=== PATIENT | male | born 2000 | race Caucasian/White ===

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

== ENCOUNTER 2023-05-04 17:51 | Emergency (ER) | payer BC, SELFPAY ==
--- OUTSIDE RECORDS SUMMARY | 2023-05-04 18:03 | XMS_ITS | Continuity of Care Document ---
Author Name Unknown Organization [facility] Address [address] [place] [address] Phone Care Team Providers Care Equipment Hire Manager Name Role Phone Froy ROMERO Karly Unavailable Unavailable Allergies, Adverse Reactions, Alerts Substance Reaction Status Criticality No Known Allergies Active No Inform ation Medications Medication Instructions Dosage Effective Dates (start - stop) Status Comments Vitamin B-12 ER 1,000 mcg tablet,extended release Take 1 tablet by mouth once daily - Active Vitamin D2 1,250 mcg (50,000 unit) capsule take 1 capsule by oral route every week with a meal - Active Synthroid 150 mcg tablet take 1 tablet by oral route 2 times every day 150 MCG - Active Celexa 10 mg tablet take 1 tablet by ora l route every day 10 MG - Active buspirone 5 mg tablet take 1 tablet by oral route 3 times every day 5 MG - Active Maxalt 10 mg tablet take 1 tablet by ora l route once, may repeat at 2 hour intervals; do not exceed 30 mg in 24 hours 10 MG - Active Procedures Procedure Date Expanded p
[2023-05-04 18:40] VITALS: BP 118/70; PULSE 107; RESP 22; TEMP 37.1; O2SAT 97; BMI 31.4
[2023-05-04 18:54] LABS: UTC Strep Screen (Rapid) Negative (Negative)
--- NOTE | 2023-05-04 19:05 | EXP.UTC ---
Discharge Plan Disposition Patient Disposition: Home, Self-Care Condition: Good Prescriptions Prescriptions: New methylprednisolone [Medrol (Emil)] 4 mg tablets,dose pack See Rx Instructions .Route .COMPLEX 6 Days Qty: 21 0RF Rx Instructions: taper pack; cefdinir 300 mg capsule 300 mg PO BID Qty: 20 0RF guaifenesin [Mucinex] 600 mg tablet extended release 12hr 1,200 mg PO BID PRN (Reason: cough) Qty: 20 0RF Referrals Follow up/Referrals: Meghan Mcgraw APRN [Primary Care Provider] - See instructions Activity Restrictions/Add. Instructions Additional Instructions/Restrictions: *Monitor Temp, Over the counter Motrin or Tylenol as directed/as needed Tylenol every 4 hours and Motrin every 6 hours (as long as your family doctor has told you that you can take it) for fever or pain. and straight to ER if unable to lower temp less than 101.0 after medication given *Warm salt water gargles may help to soothe the throat *Throat Lozenges? *Warm fluids like tea with honey may help to soothe the throat? *Sleep elevated *Humidifier/Vaporizer *Your throat swab was sent for culture. Those results are typically sent to your primary care. Be sure to follow up in 2-3 days with your family doctor/primary care physician if no improvement so they can review those result and treat if necessary. If you don?t have a primary care doctor, I recommend you get one but in the mean time, you will have to return to a walk in clinic Follow up IMMEDIATELY for new or worsening symptoms or no Noticeable improvement over the next 48-72 hours. 911 for difficulty breathing or swallowing Clinical Impressions Clinical Impression: Pharyngitis Qualifiers: Pharyngitis/tonsillitis etiology: unspecified etiology Qualified Code(s): J02.9 - Acute pharyngitis, unspecified Instructions Patient Instructions: Sore Throat, DI for Nasal Congestion Discharge ED Provider: Malinda Aburto [facility] HPI General Stated complaint: pamela, sore throat, weak Mode of Arrival: Ambulatory Source of Information: Patient Limitations: No Limitations Time Seen by Provider: 05/04/23 19:05 Description of Symptoms (Recalled from Triage Doc. by RN): PATIENT C/O SORE THROAT, CONGESTION, DRAINAGE, AND LOSS OF APPETITE X 2 DAYS HEENT Symptoms (Recalled from RN notes): Yes Resp Symptoms (Recalled from RN notes): No Skin Symptoms (Recalled from RN notes): No MS Symptoms (Recalled from RN notes): No Functional Status (Recalled from RN notes): WNL History of Present Illness Provider Complaint: Patient state that he has been having sore throat, cough, sinus congestion and drainage and lost his voice for the last couple of days and getting worse States that today he was not feeling any better so he came in to get checked Related Data Previous Rx's Medication Instructions Recorded cefdinir 300 mg capsule 300 mg PO BID #20 caps 05/04/23 guaifenesin 600 mg tablet, 1,200 mg PO BID PRN cough #20 tabs 05/04/23 extended release 12 hr (Mucinex) methylprednisolone 4 mg tablets in See Rx Instructions .Route 05/04/23 a dose pack (Medrol (Emil)) .COMPLEX 6 days #21 tabs Allergies Allergy/AdvReac Type Severity Reaction Status Date / Time No Known Allergies Allergy Verified 05/04/23 18:48 Worker's Comp Is this a Worker's Comp case?: No [facility] Disclaimer: The information contained in this section may have been updated after the patient was seen, as this information can be updated by other users. Medical History (Updated 05/04/23 @ 19:09 by Malinda Aburto APRN) Migraine Thyroid disease Surgical History (Updated 05/04/23 @ 18:49 by Coty Andrews RN) History of tonsillectomy Social History Smoking Status: Unknown if ever smoked alcohol intake: never current occupational status: employed Travel in the last 8 weeks: None ROS Obtained: Yes All systems reviewed & no additional complaints except as
[2023-05-04 19:24] VITALS: BP 118/70; PULSE 107; RESP 22; TEMP 37.1; O2SAT 97
== END 2023-05-04 19:34 | disposition home or self-care (01) ==
PROVIDERS: Emergency Provider Nurse Practitioner; PCP Nurse Practitioner Family
DX: J02.9 Acute pharyngitis, unspecified (principal); R09.81 Nasal congestion; R05.9 Cough, unspecified; R53.1 Weakness
CPT/HCPCS: 87880; 99204; 99212; G0463